=== PATIENT | female | born 1970 | race Caucasian/White ===

== ENCOUNTER 2024-06-26 01:30 | Inpatient (IN) | payer MEDICAID ==
[~2024-06-26] VITALS: Ht 157.5 cm; Wt 56.7 kg
[2024-06-26] VITALS (7 sets, daily range): BP systolic 125–175; BP diastolic 63–109; PULSE 62–196; RESP 16–68; TEMP 97.1–98.1; O2SAT 97–99
[2024-06-26 02:13] LABS: BASOPHILS # (AUTO) 0.3 K/uL (0.00-0.22); EOSINOPHILS # (AUTO) 0.2 K/uL (0-0.4); HEMATOCRIT 38.3 % (36-48); HEMOGLOBIN 13.2 g/dL (12.0-16.0); LYMPHOCYTES # (AUTO) 1.6 K/uL (2.5-16.5); LYMPHOCYTES % (AUTO) 32.4 % (20.5-51.1); MEAN CORPUSCULAR HEMOGLOBIN 31 pg (27-31); MEAN CORPUSCULAR HGB CONC 35 g/dL (33-37); MONOCYTES # (AUTO) 0.6 K/uL (0.8-1.0); MONOCYTES % (AUTO) 12.1 % (1.7-9.3); NEUTROPHILS # (AUTO) 2.3 K/uL (1.8-7.7); NEUTROPHILS % (AUTO) 45.9 % (42.2-75.2); PLATELET COUNT (AUTO) 150 K/uL (140-450); RED BLOOD CELL COUNT(AUTO) 4.31 MIL/uL (4.20-5.40); RED CELL DISTRIBUTION WIDTH 12.6 % (11.6-13.7); WHITE BLOOD COUNT (AUTO) 4.9 K/uL (4.8-10.8)
[2024-06-26 02:15] LABS: BASOPHILS % (AUTO) 5.6 % (0.0-2.0)
[2024-06-26 02:27] LABS: ANION GAP 7.5 (8-16); CALCIUM 9.3 mg/dL (8.5-10.1); CARBON DIOXIDE 30.9 mmol/L (21-32); CHLORIDE 104 mmol/L (98-107); CREATININE 1.3 mg/dL (0.6-1.3); GFR ARICAN-AMERICAN 55 mL/min (>90); GFR NON ARICAN-AMERICAN 46 mL/min (>90); GLUCOSE 119 mg/dL (74-106); POTASSIUM 3.4 mmol/L (3.5-5.1); SODIUM SERUM 139 mmol/L (136-145); UREA NITROGEN, BLOOD 19 mg/dL (7-18)
[2024-06-26 02:38] LABS: TOTAL BILIRUBIN 0.3 mg/dL (0.0-1.0)
[2024-06-26 02:39] LABS: ALANINE AMINOTRANSFERASE 35 U/L (12-78); ALBUMIN 3.5 g/dL (3.4-5.0); ALKALINE PHOSPHATASE 117 U/L (50-136); ASPARTATE AMINOTRANSFERASE 46 U/L (15-37); TOTAL PROTEIN, SERUM 7.8 g/dL (6.4-8.2)
[2024-06-26] MEDS: ASPIRIN 81 MG TAB.CHEW PO ONE (04:50)
[2024-06-26] MEDS ORDERED: ONDANSETRON 4 MG/2 ML VIAL IVP PRN (06:10)
[2024-06-26] MEDS ORDERED: REGADENOSON 0.4 MG/5 ML SYR IV SCH (08:00)
[2024-06-26 08:01] LABS: CHOL/HDL RATIO 2.8 (1-4.5)
[2024-06-26] MEDS ORDERED: NITROGLYCERIN 0.4 MG TAB SL PRN (10:20)
[2024-06-26] MEDS ORDERED: DEXTROSE 50% 50 ML SYR IVP PRN (10:20)
[2024-06-26] MEDS: BLOOD GLUCOSE MONITORING 1 DEV DEV FS SCH (11:30)
[2024-06-26] MEDS: carvediloL 6.25 MG TAB PO SCH ×2 (18:06→20:30)
[2024-06-26] MEDS: carvediloL 6.25 MG TAB ONE (18:54)
[2024-06-26] MEDS: INSULIN LISPRO SLIDING SCALE 100 UNITS/ML VIAL SUBQ PRN (20:40)
[2024-06-26] MEDS ORDERED: METOPROLOL 25 MG TAB PO SCH (21:00)
[2024-06-26] MEDS ORDERED: ATORVASTATIN 20 MG TAB PO SCH (21:00)
[2024-06-26] MEDS: ACETAMINOPHEN 325 MG TAB PO PRN (21:14)
[2024-06-27] VITALS: BP 100/56; PULSE 57; PULSE 72; RESP 18; TEMP 97; O2SAT 97
[2024-06-27 04:00] VITALS: BP 121/90; PULSE 53; PULSE 63; RESP 18; TEMP 97.1; O2SAT 100
[2024-06-27 07:59] LABS: BASOPHILS # (AUTO) 0.1 K/uL (0.00-0.22); BASOPHILS % (AUTO) 1.2 % (0.0-2.0); EOSINOPHILS # (AUTO) 0.2 K/uL (0-0.4); EOSINOPHILS % (AUTO) 4.9 % (0.0-4.0); HEMATOCRIT 36.4 % (36-48); HEMOGLOBIN 12.3 g/dL (12.0-16.0); LYMPHOCYTES # (AUTO) 1.5 K/uL (2.5-16.5); LYMPHOCYTES % (AUTO) 36.2 % (20.5-51.1); MEAN CORPUSCULAR HEMOGLOBIN 30 pg (27-31); MEAN CORPUSCULAR HGB CONC 34 g/dL (33-37); MEAN CORPUSCULAR VOLUME 88.2 fL (80-94); MONOCYTES # (AUTO) 0.3 K/uL (0.8-1.0); MONOCYTES % (AUTO) 7.7 % (1.7-9.3); NEUTROPHILS # (AUTO) 2.1 K/uL (1.8-7.7); PLATELET COUNT (AUTO) 154 K/uL (140-450); RED BLOOD CELL COUNT(AUTO) 4.13 MIL/uL (4.20-5.40); RED CELL DISTRIBUTION WIDTH 12.7 % (11.6-13.7); WHITE BLOOD COUNT (AUTO) 4.1 K/uL (4.8-10.8)
[2024-06-27 08:00] VITALS: BP 118/61; PULSE 64; RESP 18; TEMP 97.1; O2SAT 98; O2SAT 99
[2024-06-27 08:15] LABS: ANION GAP 8.2 (8-16); CALCIUM 8.6 mg/dL (8.5-10.1); CARBON DIOXIDE 28.6 mmol/L (21-32); CREATININE 1.3 mg/dL (0.6-1.3); POTASSIUM 3.8 mmol/L (3.5-5.1)
[2024-06-27] MEDS ORDERED: lisinopriL 5 MG TAB PO SCH (09:00)
[2024-06-27] MEDS: ASPIRIN 81 MG TAB.CHEW PO SCH (09:00)
[2024-06-27 09:02] LABS: MAGNESIUM 2.1 mg/dL (1.8-2.4); PHOSPHORUS 4.3 mg/dL (2.5-4.9)
[2024-06-27] MEDS: ATORVASTATIN 20 MG TAB PO SCH (09:08)
[2024-06-27] MEDS: LOSARTAN 25 MG TAB PO SCH (09:09)
[2024-06-27 12:00] VITALS: BP 120/69; PULSE 50; PULSE 57; RESP 18; TEMP 96.9; O2SAT 98
[2024-06-27 16:00] VITALS: BP 115/68; PULSE 50; PULSE 63; RESP 18; TEMP 96.9; O2SAT 98
[2024-06-27 20:00] VITALS: BP 131/74; PULSE 75; PULSE 78; RESP 18; TEMP 98.2; O2SAT 96; O2SAT 99
[2024-06-28] VITALS: BP 126/75; PULSE 58; PULSE 61; RESP 18; TEMP 97.1; O2SAT 97
[2024-06-28 04:00] VITALS: BP 117/66; PULSE 54; PULSE 63; RESP 18; TEMP 97; O2SAT 97
[2024-06-28 06:57] LABS: BASOPHILS % (AUTO) 0.6 % (0.0-2.0); EOSINOPHILS # (AUTO) 0.2 K/uL (0-0.4); EOSINOPHILS % (AUTO) 4.2 % (0.0-4.0); HEMATOCRIT 36.4 % (36-48); HEMOGLOBIN 12.3 g/dL (12.0-16.0); LYMPHOCYTES # (AUTO) 1.7 K/uL (2.5-16.5); LYMPHOCYTES % (AUTO) 35.6 % (20.5-51.1); MEAN CORPUSCULAR HEMOGLOBIN 30 pg (27-31); MEAN CORPUSCULAR HGB CONC 34 g/dL (33-37); MEAN CORPUSCULAR VOLUME 88.1 fL (80-94); MONOCYTES # (AUTO) 0.5 K/uL (0.8-1.0); MONOCYTES % (AUTO) 11.1 % (1.7-9.3); NEUTROPHILS # (AUTO) 2.3 K/uL (1.8-7.7); NEUTROPHILS % (AUTO) 48.5 % (42.2-75.2); PLATELET COUNT (AUTO) 147 K/uL (140-450); RED BLOOD CELL COUNT(AUTO) 4.13 MIL/uL (4.20-5.40); RED CELL DISTRIBUTION WIDTH 12.4 % (11.6-13.7); WHITE BLOOD COUNT (AUTO) 4.8 K/uL (4.8-10.8)
[2024-06-28 07:12] LABS: ANION GAP 8.6 (8-16); CALCIUM 8.6 mg/dL (8.5-10.1); CARBON DIOXIDE 29.2 mmol/L (21-32); CREATININE 1.3 mg/dL (0.6-1.3); POTASSIUM 3.8 mmol/L (3.5-5.1)
[2024-06-28 08:00] VITALS: BP 129/64; PULSE 69; RESP 18; TEMP 97.1; O2SAT 98
[2024-06-28] MEDS ORDERED: ATOR10TA PO (11:05)
[2024-06-28] MEDS ORDERED: ASPI-1822 PO (11:05)
[2024-06-28] MEDS ORDERED: CARV12.5 PO (11:07)
[2024-06-28 11:17] VITALS: BP 129/64; PULSE 69; RESP 18; TEMP 97.1
[2024-06-28 12:00] VITALS: BP 121/85; PULSE 69; RESP 18; TEMP 98; O2SAT 99
== END 2024-06-28 12:55 | disposition home or self-care (01) | DRG 199 ==
LOC: MED 01:30 → MTU 06:14
PROVIDERS: ADMIT Student in an Organized Health Care Education/Training Program; ATTEND Student in an Organized Health Care Education/Training Program
PROC: 4A02XM4 Measurement of Cardiac Total Activity, External Approach (ICD-10-PCS; principal; 2024-06-27)
DX: I16.0 Hypertensive urgency (principal); I21.A1 Myocardial infarction type 2; Z79.899 Other long term (current) drug therapy; I10 Essential (primary) hypertension; Z88.8 Allergy status to other drugs, medicaments and biological substances; Z88.0 Allergy status to penicillin
CPT/HCPCS: 36415; 71045; 80048; 80053; 82948; 83735; 83880; 84100; 84484; 85025; 87081; 93005; 93017; 99291; A9500; A9502; J1644; J1815; J2785; Q0092